=== PATIENT | female | born 1990 | race Caucasian/White ===

== ENCOUNTER 2016-06-19 09:14 | Emergency (ER) | payer OTHER | END 2016-06-19 11:27 | disposition home or self-care (01) | LOC: ER 09:14 | DX: K08.89 Other specified disorders of teeth and supporting structures (principal); I10 Essential (primary) hypertension; F41.9 Anxiety disorder, unspecified; M21.942 Unspecified acquired deformity of hand, left hand; M21.941 Unspecified acquired deformity of hand, right hand; M20.002 Unspecified deformity of left finger(s); M20.001 Unspecified deformity of right finger(s); Z79.899 Other long term (current) drug therapy | CPT/HCPCS: 99282 ==

== ENCOUNTER 2016-06-21 09:19 | Emergency (ER) | payer OTHER | END 2016-06-21 10:03 | disposition home or self-care (01) | LOC: ER 09:19 | DX: K05.10 Chronic gingivitis, plaque induced (principal); I10 Essential (primary) hypertension; F17.220 Nicotine dependence, chewing tobacco, uncomplicated; Z79.899 Other long term (current) drug therapy | CPT/HCPCS: 99282 ==

== ENCOUNTER 2016-07-03 09:50 | Emergency (ER) | payer OTHER | END 2016-07-03 12:30 | disposition home or self-care (01) | LOC: ER 09:50 | DX: J06.9 Acute upper respiratory infection, unspecified (principal); R11.2 Nausea with vomiting, unspecified; I10 Essential (primary) hypertension; M20.009 Unspecified deformity of unspecified finger(s); F17.220 Nicotine dependence, chewing tobacco, uncomplicated; Z79.899 Other long term (current) drug therapy | CPT/HCPCS: 87400; 99283 ==

== ENCOUNTER 2016-08-07 13:56 | Emergency (ER) | payer OTHER | END 2016-08-07 15:42 | disposition home or self-care (01) | LOC: ER 13:56 | DX: Z32.02 Encounter for pregnancy test, result negative (principal); J44.9 Chronic obstructive pulmonary disease, unspecified; K21.9 Gastro-esophageal reflux disease without esophagitis; F32.9 Major depressive disorder, single episode, unspecified; J45.909 Unspecified asthma, uncomplicated; F17.220 Nicotine dependence, chewing tobacco, uncomplicated | CPT/HCPCS: 81025; 99283 ==